=== PATIENT | male | born 1950 | race Caucasian/White ===

== ENCOUNTER → 2016-12-31 | Outpatient (CLI) | payer MEDICARE, OTHER ==
--- NOTE | ~2016-12-31 | MR176 ---
[facility] A Service of [facility] & [facility] RADIOLOGY TEXT RESULTS PATIENT: PUMA HERNANDEZ JR LOCATION: [facility] : 50 UNIT #: [id number] AGE: [address]: Lilian Veliz APRN SEX: M ORDER DR: [id number] [address] [address] [id number] O MR#: [id number] Acc #: [id number] NAME: PUMA HERNANDEZ : 1950 SEX: M STUDY DATE/TIME: 12/31/2016 9:36 UNIT: [facility] ROOM: STUDY DESCRIPTION: MR Thoracic Wo Contrast Attending Physician: Lilian Veliz A.P.R.N. Referring Physician: Lilian Veliz A.P.R.N. Ordering Physician: Lilian Veliz A.P.R.N. Primary Care Physician: Lilian Veliz A.P.R.N. MRI CENTER REPORT This report is preliminary unless electronic signature is present. EXAM Thoracic MRI. HISTORY Pain between the scapulae radiating toward the left shoulder for the past 5 years. Injury 5 years ago. TECHNIQUE Multiplanar imaging of the thoracic spine was performed with short and long TR. FINDINGS Mild degenerative changes are seen at all thoracic discs without disc bulging or herniation. The thoracic spinal canal is widely patent. Vertebral body height is preserved and there is no evidence of marrow edema. The cord is normal in size and signal. No paraspinous masses are noted. The descending thoracic aorta is generally ectatic measuring about 3 cm in diameter. No evidence of dissection or focal aneurysm. IMPRESSION Mild degenerative changes at all thoracic discs without significant bulging or herniation. Otherwise, negative thoracic MRI. Dictated by... Jason Maldonado M.D. THIS IS AN ELECTRONICALLY VERIFIED REPORT Jason Maldonado M.D. at 01/01/2017 3:04 PM RLF/nadine [facility] A Service of [facility] & [facility] RADIOLOGY TEXT RESULTS PATIENT: PUMA HERNANDEZ JR [id number] [birth year] UNIT #: [id number] AGE: [address]: Lilian Veliz APRN SEX: M ORDER DR: TD: 01/01/2017 13:46 JOB #: [id number] MRI CENTER REPORT Page 1 of 1
--- NOTE | ~2016-12-31 | MR164 ---
[facility] A Service of [facility] & [facility] RADIOLOGY TEXT RESULTS PATIENT: PUMA HERNANDEZ JR LOCATION: [facility] : 50 UNIT #: [id number] AGE: [address]: Lilian Veliz APRN SEX: M ORDER DR: [id number] [address] [address] [id number] O MR#: [id number] Acc #: [id number] NAME: PUMA HERNANDEZ : 1950 SEX: M STUDY DATE/TIME: 12/31/2016 8:42 UNIT: [facility] ROOM: STUDY DESCRIPTION: MR Shoulder Wo Contrast Lt Attending Physician: Lilian Veliz A.P.R.N. Referring Physician: Lilian Veliz A.P.R.N. Ordering Physician: Lilian Veliz A.P.R.N. Primary Care Physician: Lilian Veliz A.P.R.N. MRI CENTER REPORT This report is preliminary unless electronic signature is present. EXAM MRI of the left shoulder without contrast. HISTORY Left shoulder pain for over 5 years. Pain radiating down between scapula. Patient states fell 5 years ago stepping out of truck. COMPARISON MRI of the left shoulder, 05/05/2012. FINDINGS Multiplanar multiecho imaging was performed of the left shoulder utilizing a high-field magnet dedicated protocol. There is mild AC joint arthropathy with inferiorly-directed distal clavicular and acromial osteophyte with minimal mass effect on the rotator cuff. Small amount of periarticular edema. Marrow signal within the proximal humerus and glenoid appears normal. Joint fluid within normal limits. Rotator cuff appears intact without high-grade tendinopathy or tear. There may be a small amount of insertional tendinopathy supraspinatus tendon with some adjacent bursal inflammation. No muscle atrophy or edema. There has been resolution of the muscle edema, which was noted on the patient's MRI from 2011. No residual fatty atrophy. Superior labrum, biceps anchor and long tendon of the biceps appears intact. Visualized labrum and extraarticular soft tissues appear normal. IMPRESSION 1. Minimal insertional tendinopathy of the rotator cuff involving primarily the infraspinatus and maybe the supraspinatus tendon. There is a small amount of adjacent bursal inflammation. No high-grade tendinopathy or tear. 2. Mild AC joint arthropathy with a small amount of periarticular inflammation. [facility]. [facility] A Service of [facility] RADIOLOGY TEXT RESULTS PATIENT: PUMA HERNANDEZ JR LOCATION: [facility] : 50 UNIT #: [id number] AGE: [address]: Lilian Veliz APRN SEX: M ORDER DR: 3. Interval resolution of muscle edema, which may have been related to muscle strain or denervation change on the study in 2011. 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 1. Dictated by... Katherine Singh M.D. THIS IS AN ELECTRONICALLY VERIFIED REPORT Katherine Singh M.D. at 01/02/2017 4:50 PM FREDY/quiana TD: 01/01/2017 06:25 JOB #: [id number] MRI CENTER REPORT Page 1 of 1
== END | disposition home or self-care (01) ==
LOC: SMRI 08:08
DX: M54.6 Pain in thoracic spine (principal); M75.102 Unspecified rotator cuff tear or rupture of left shoulder, not specified as traumatic; M47.894 Other spondylosis, thoracic region; M19.012 Primary osteoarthritis, left shoulder
CPT/HCPCS: 72146; 73221